=== PATIENT | female | born 1990 | race Caucasian/White ===

== ENCOUNTER → 2021-06-28 18:02 | Outpatient (CLI) | payer OTHER, SELFPAY ==
--- NOTE | 2021-06-28 | DI.MRI.S_ITS ---
PROCEDURE: MR LUMBAR SPINE WO CON INDICATIONS: Low back pain, unspecified TECHNIQUE: Noncontrast sagittal T1 spin echo and T2 fast echo, sagittal STIR, axial T1 and T2 fast spin echo through the lumbar spine. In cases with scoliosis, additional coronal T2 fast spin echo may be performed. COMPARISON: [facility] [place], [place], XR LUMBAR SPINE 2 OR 3 VIEWS, 06/18/2021, 15:31. FINDINGS: Image quality: Excellent. Alignment and Curvature: Mild levo curvature centered at L2. Bone Marrow: Marrow is of normal overall signal. No acute vertebral body compression fractures. Spinal Cord: Conus medullaris terminates at the L1-L2 level. Visualized cord demonstrates normal signal and size. Paraspinous Soft Tissues: No paravertebral masses. T12-L1: No canal stenosis or foraminal stenosis. L1-L2: No canal stenosis or foraminal stenosis. L2-L3: No canal stenosis or foraminal stenosis. L3-L4: Mild facet hypertrophy. No canal stenosis or foraminal stenosis. L4-L5: Posterior annulus tear associated with moderate diffuse disc bulge. Facet hypertrophy. Moderate canal stenosis. Disc material abuts the bilateral L5 nerve roots in the lateral recesses. No significant foraminal stenosis. L5-S1: Annulus tear plus diffuse disc bulge. Facet hypertrophy. Mild canal stenosis. [id number]-[id number] left foraminal stenosis. IMPRESSION: 1. Lower lumbar facet arthropathy. 2. Annulus tears plus disc bulges at L4-L5 and L5-S1. 3. Canal stenosis is moderate at L4-L5 and mild at L5-S1. Dictated by: Micha Caldwell M.D. on 06/28/2021 at 22:42 Approved by: Micha Caldwell M.D. on 06/28/2021 at 22:47
== END ==
PROVIDERS: Referring Provider Orthopaedic Surgery Orthopaedic Surgery of the Spine; Visit Provider Orthopaedic Surgery Orthopaedic Surgery of the Spine
DX: M47.816 Spondylosis without myelopathy or radiculopathy, lumbar region (principal); M47.817 Spondylosis without myelopathy or radiculopathy, lumbosacral region; M51.26 Other intervertebral disc displacement, lumbar region; M51.27 Other intervertebral disc displacement, lumbosacral region; M48.061 Spinal stenosis, lumbar region without neurogenic claudication; M48.07 Spinal stenosis, lumbosacral region
CPT/HCPCS: 72148

== ENCOUNTER 2021-08-10 13:37 | Emergency (ER) | payer OTHER, SELFPAY ==
[2021-08-10 14:05] VITALS: BP 137/89; PULSE 83; RESP 20; TEMP 36.2; O2SAT 100; BMI 28.1
[2021-08-10] MEDS: KETOROLAC 30 MG/ML VIAL 15 MG IV (16:31)
[2021-08-10] MEDS: SODIUM CHLORIDE 0.9% 1,000 ML 1000 ML IV (16:31)
[2021-08-10] MEDS: METOCLOPRAMIDE 10 MG/2 ML INJ IV (16:31)
[2021-08-10] MEDS: DEXAMETHASONE 10 MG/ML VIAL IV (16:31)
--- NOTE | 2021-08-10 18:28 | ED.HA ---
HPI - Headache General Chief Complaint: Headache Stated Complaint: Migraine, loss of vision, faint Time Seen by Provider: 08/10/21 16:08 Source: patient Mode of arrival: Family Vehicle Limitations: no limitations History of Present Illness HPI Narrative: This is a 30-year-old female with history of migraines who comes in with complaint of a right-sided headache that is been present for 3 days it came on slowly in the lower neck and up to the right side of her head. This is somewhat atypical of her 9 greens but she was having nausea, vision changes and some vertigo with her symptoms. Patient states she has not any fevers or chills. She had photophobia, loud noises were also quite troublesome. She tried her Fioricet, sumatriptan as well as Tylenol without any improvement over 3 days and came to the emergency department because her symptoms had worsened. She denies any other infectious type symptoms. She does have a diagnosis of cervical radiculopathy and has intermittent numbness and tingling down her left upper extremity. She is also set up for lower lumbar injection later in the month. She has been seen for both of these. She does take multiple medications including gabapentin, rizatriptan daily. She is feeling significantly better after medications given here in the department. Related Data Allergies Allergy/AdvReac Type Severity Reaction Status Date / Time ceftriaxone [From Rocephin] Allergy Hives Verified 08/10/21 14:10 Review of Systems Review of Systems ROS Unobtainable: All systems reviewed & are unremarkable except as noted in HPI and below Patient History Social History Smoking Status: Never smoker Smoking Status: Never smoker alcohol intake frequency: 0-2 drinks per day Substance Use Type: does not use Exam Narrative Exam Narrative: GEN: well nourished, well appearing female, alert and oriented x 3, patient appears to be in mild distress. HEENT: Atraumatic, pupils are equal round reactive to light, extraocular movements are intact, nares are clear. No meningeal signs. Full range of motion. HEART: Regular rate and rhythm without murmur, clicks, rubs. LUNGS:Lungs clear to auscultation, no wheezes, rales, crackles, chest moves symmetrically ABD:bowel sounds normal, soft, non-tender, no guarding, rebound, rigidity, no masses noted, no hepatosplenomegaly MSCL: Non-tender, no muscle atrophy, muscles strength 5/5 upper and lower extremities, full range of motion, normal gait NEURO:CN 2-12 intact, sensation normal SKIN: No rash noted. Initial Vital Signs Initial Vital Signs: Vital Signs Temperature 97.2 F L 08/10/21 14:05 Pulse Rate 83 08/10/21 14:05 Respiratory Rate 20 08/10/21 14:05 Blood Pressure 137/89 08/10/21 14:05 Pulse Oximetry 100 08/10/21 14:05 Course Orders Ordered: Discontinued Medications Dexamethasone (Dexamethasone 10 Mg/Ml Vial) 10 mg IV NOW ONE Stop: 08/10/21 16:09 Last Admin: 08/10/21 16:31 Dose: 10 mg Documented by: OLEG Sodium Chloride (Normal Saline 0.9%) 1,000 mls @ 1,000 mls/hr IV BOLUS ONE Stop: 08/10/21 17:07 Last Admin: 08/10/21 16:31 Dose: 1,000 mls/hr Documented by: OLEG Ketorolac Tromethamine (Ketorolac 30 Mg/Ml Vial) 15 mg IV NOW ONE Stop: 08/10/21 16:09 Last Admin: 08/10/21 16:31 Dose: 15 mg Documented by: OLEG Metoclopramide HCl (Metoclopramide 10 Mg/2 Ml Inj) 10 mg IV NOW ONE Stop: 08/10/21 16:09 Last Admin: 08/10/21 16:31 Dose: 10 mg Documented by: OLEG Vital Signs Vital signs: Vital Signs - 8 hr 08/10/21 14:05 Temperature 97.2 F L Pulse Rate 83 Respiratory Rate 20 Blood Pressure 137/89 Pulse Oximetry 100 MDM - Headache MDM Narrative Medical decision making narrative: This is a 30-year-old female comes emergency department history of migraines with somewhat atypical location of pain but otherwise similar symptoms who is significantly better after medication. Patient feels comfortable to return home. Discharge Plan Departure Patient Disposition: Home Clinical Impression: Migraine Instructions: DI for Migraine Activity Restrictions/Additional Instructions: Follow-up with your physician for recheck. I would recommend trying to get a good night's sleep and drinking plenty of water. Please return for fevers, new or worsening headaches, new vision changes, new numbness, weakness, difficulty with movement, speech changes, persistent vomiting or other new or concerning symptoms. Referrals: Kristan Mandujano ARNP [Primary Care Provider] -
[2021-08-10 18:41] VITALS: BP 129/73; PULSE 79; RESP 16; O2SAT 100
== END 2021-08-10 18:44 | disposition home or self-care (01) ==
PROVIDERS: Emergency Provider Emergency Medicine; PCP Nurse Practitioner Family
DX: G43.909 Migraine, unspecified, not intractable, without status migrainosus (principal)
CPT/HCPCS: 96361; 96374; 96375; 99283; 99284; J1100; J1885; J2765

== ENCOUNTER → 2021-11-11 13:01 | Outpatient (CLI) | payer OTHER, SELFPAY ==
--- NOTE | 2021-11-11 | DI.MRI.S_ITS ---
PROCEDURE: MR HEAD/BRAIN WO/W CON INDICATIONS: Chronic migraine without aura, intractable TECHNIQUE: Noncontrast sagittal T1 spin echo, axial T2 fast spin echo, axial FLAIR, axial gradient echo, axial diffusion and ADC through the brain. Axial/sagittal/coronal 3-D CISS, thin-slice axial T1 spin echo with fat saturation through the skull base. After the administration of contrast, axial and coronal thin-slice T1 spin echo with fat saturation through the skull base, axial T1 spin echo with fat saturation through the brain. COMPARISON: None. FINDINGS: Cerebrum, Cerebellum and Brainstem: The diffusion sequence is normal without evidence of acute infarct. No intracranial hemorrhage, mass lesion or midline shift. There is a normal cerebral and cerebellar volume present. White matter is unremarkable without evidence of edema. Basal cisterns and foramen magnum contain appropriate anatomy and vascular flow voids. No evidence of dural or leptomeningeal thickening. Small retro cerebellar cyst measures 2.0 x 1.5 cm Ventricles: Appropriate in size and position. No hydrocephalus. Skull Base: The bony sella, pituitary gland and infundibulum are unremarkable. Clivus and craniovertebral relationships are appropriate. Visualized portions of the seventh and eighth cranial nerve complexes and internal auditory canals are within normal limits. Scalp and Calvarium: The scalp is unremarkable. Underlying calvarium has an appropriate marrow signal. Paranasal Sinuses: Visualized sinuses are clear. Mastoids: Unremarkable as visualized. No mastoid effusion present. Orbits: The orbits, globes and ocular muscles are unremarkable. IMPRESSION: Unremarkable MRI of the brain Approved by: Hunter Sarmiento M.D. on 11/11/2021 at 16:48
== END ==
PROVIDERS: PCP Nurse Practitioner Family; Referring Provider Psychiatry & Neurology Neurology; Visit Provider Psychiatry & Neurology Neurology
DX: G43.719 Chronic migraine without aura, intractable, without status migrainosus (principal)
CPT/HCPCS: 70553; A9579

== ENCOUNTER 2025-04-13 16:29 | Emergency (ER) | payer OTHER, SELFPAY ==
[2025-04-13 16:56] VITALS: BP 134/107; PULSE 99; RESP 16; TEMP 36.4; O2SAT 100; BMI 28.0
--- NOTE | 2025-04-13 17:07 | DI.RAD.S_ITS ---
PROCEDURE: XR CHEST 1V INDICATIONS: Chest Pain TECHNIQUE: One view of the chest was acquired. COMPARISON: None. FINDINGS: Surgical changes and devices: None. Lungs and pleura: Lungs are clear. No pleural effusions or pneumothorax. Mediastinum: Mediastinal contours appear normal. Heart size is normal. Bones and chest wall: No suspicious bony lesions. Overlying soft tissues appear unremarkable. IMPRESSION: No acute cardiopulmonary abnormality is seen. Dictated by: Micha Caldwell M.D. on 04/13/2025 at 17:52 Approved by: Micha Caldwell M.D. on 04/13/2025 at 17:53
--- NOTE | 2025-04-13 17:07 | EKG_ITS ---
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
--- NOTE | 2025-04-13 17:49 | ED.CHESTPAIN ---
HPI - Chest Pain <MIRELA Cruz Last Filed: 04/13/25 20:20> General Chief Complaint: Chest Pain Stated Complaint: chest pain, headache Time Seen by Provider: 04/13/25 17:43 Source: patient Mode of arrival: Ambulatory History of Present Illness HPI narrative: Ms. Ferrer is a pleasant 34-year-old female with a past medical history of migraine headache, HLD who presents to the emergency department for left-sided chest pain, headache x 6-8 weeks, pain with deep breath today. Patient states that she was previously evaluated for these symptoms at an outside ER and had negative workup at that time however her symptoms have been getting worse and more frequent and today she also started to have some pain with a deep breath which is what prompted her ER arrival. Patient describes focal intermittent pain on the anterior left lowest rib that lasts for about an hour when it comes and then entirely resolves. Today this pain got worse and was more prominent with a deep breath which is what caused her to return to the ER. She also has a tight sensation on her left upper chest wall and a muscle spasm in the left posterior neck that is causing headache. Patient denies abdominal pain, nausea, vomiting, diarrhea, constipation, dysuria but she does report some urinary frequency. Denies fevers, chills, cough, URI type symptoms. Denies history of VTE, she does take oral contraceptive pills. Smoking history consists of 1 year vaping. Related Data Previous Rx's ?Medication ?Instructions ?Recorded pantoprazole 40 mg tablet,delayed 40 mg PO DAILY 4 weeks #30 tabs 04/13/25 release Allergies Allergy/AdvReac Type Severity Reaction Status Date / Time ceftriaxone (From Rocephin) Allergy Hives Verified 08/10/21 14:10 Review of Systems <Martine Munguia PA-C - Last Filed: 04/13/25 20:20> Review of Systems ROS Unobtainable: All systems reviewed & are unremarkable except as noted in HPI and below Patient History <Martine Munguia PA-C - Last Filed: 04/13/25 20:20> Social History Smoking Status: Former smoker Smoking Status: Former smoker tobacco type: vaping alcohol intake frequency: 0-2 drinks per day Exam <Martine Munguia PA-C - Last Filed: 04/13/25 20:20> Narrative Exam Narrative: GENERAL: 34 year old patient appears stated age. Well-developed patient, in no acute distress. HEAD: Atraumatic. Normocephalic. EYES: Pupils equal, round, reactive. No scleral icterus. No injection or drainage. NECK: Trachea midline. Cervical ROM intact. No midline spinal tenderness or meningeal signs. CARDIOVASCULAR: Regular rate and rhythm. Patient has subjective tenderness to palpation of a focal area on the anterior lower ribcage. No bruising or deformities. RESPIRATORY: ?Nonlabored respirations. ?Speaking in clear, full sentences. ?Clear to auscultation. Breath sounds equal bilaterally. No wheezes, rales, or rhonchi. ? GASTROINTESTINAL: Abdomen soft, non-tender, nondistended. BS present. EXTREMITIES: No LE edema. BACK: No CVA tenderness bilaterally. NEURO: AOx3. ?Clear speech. ?Moves all 4 extremities appropriately. SKIN: No rash or erythema of visible areas Initial Vital Signs Initial Vital Signs: Vital Signs Temperature 97.6 F 04/13/25 16:56 Pulse Rate 99 H 04/13/25 16:56 Respiratory Rate 16 04/13/25 16:56 Blood Pressure 134/107 H 04/13/25 16:56 Pulse Oximetry 100 04/13/25 16:56 Oxygen Delivery Method Room Air 04/13/25 16:56 <Danika Schuster DO - Last Filed: 04/14/25 03:49> Initial Vital Signs Initial Vital Signs: Vital Signs Temperature 97.6 F 04/13/25 16:56 Pulse Rate 99 H 04/13/25 16:56 Respiratory Rate 16 04/13/25 16:56 Blood Pressure 134/107 H 04/13/25 16:56 Pulse Oximetry 100 04/13/25 16:56 Oxygen Delivery Method Room Air 04/13/25 16:56 Scores <Martine Munguia PA-C - Last Filed: 04/13/25 20:20> HEART Score Heart Score history: Slightly Suspicious Heart Score EKG: Normal Heart Score Age: < 45 years old Heart Score risk factors: 1-2 risk factors Heart Score troponin: < or = to normal limit Heart Score Total: 1 PERC Score Age greater than or equal to 50 years: No Heart rate greater than or equal to 100 bpm: No Room Air O2 Sat less than 95%: No Unilateral leg swelling: No Recent trauma or surgery: No Hemoptysis: No Prior PE or DVT: No Hormone Use: Yes Total PERC Score: 1 <Danika Schuster DO - Last Filed: 04/14/25 03:49> HEART Score Heart Score Total: 1 PERC Score Total PERC Score: 1 Course <Martine Munguia PA-C - Last Filed: 04/13/25 20:20> Orders Ordered: ED Orders 04/13/25 19:14 Complete Blood Count AUTO DIFF Stat Comprehensive Metabolic Panel Stat Lipase Stat Magnesium Stat NT-proBNP (BNP-Adult 18+) Stat Troponin & CK Cardiac Panel Stat Discontinued Medications Aspirin (Aspirin 81 Mg Chew Tab) 324 mg PO NOW ONE Stop: 04/13/25 17:08 Last Admin: 04/13/25 18:08 Dose: Not Given Documented By: ARLEY Sodium Chloride (Normal Saline 0.9%) 1,000 mls @ 1,000 mls/hr IV BOLUS ONE Stop: 04/13/25 19:04 Last Infusion: 04/13/25 19:49 Dose: Infused Documented By: Admin: 04/13/25 18:22 Dose: 1,000 mls/hr Documented By: ARLEY Ketorolac Tromethamine (Ketorolac 30 Mg/Ml Vial) 15 mg IV NOW ONE Stop: 04/13/25 18:06 Last Admin: 04/13/25 18:22 Dose: 15 mg Documented By: ARLEY Methocarbamol (Methocarbamol 500 Mg Tablet) 1,000 mg PO NOW ONE Stop: 04/13/25 18:06 Last Admin: 04/13/25 18:31 Dose: 1,000 mg Documented By: ARLEY Vital Signs Vital signs: Vital Signs - 8 hr 04/13/25 16:56 Temperature 97.6 F Pulse Rate 99 H Respiratory Rate 16 Blood Pressure 134/107 H Pulse Oximetry 100 Oxygen Delivery Method Room Air <Danika Schuster DO - Last Filed: 04/14/25 03:49> Orders Ordered: ED Orders 04/13/25 19:14 Complete Blood Count AUTO DIFF Stat Comprehensive Metabolic Panel Stat Lipase Stat Magnesium Stat NT-proBNP (BNP-Adult 18+) Stat Troponin & CK Cardiac Panel Stat Discontinued Medications Aspirin (Aspirin 81 Mg Chew Tab) 324 mg PO NOW ONE Stop: 04/13/25 17:08 Last Admin: 04/13/25 18:08 Dose: Not Given Documented By: ARLEY Sodium Chloride (Normal Saline 0.9%) 1,000 mls @ 1,000 mls/hr IV BOLUS ONE Stop: 04/13/25 19:04 Last Infusion: 04/13/25 19:49 Dose: Infused Documented By: Admin: 04/13/25 18:22 Dose: 1,000 mls/hr Documented By: ARLEY Ketorolac Tromethamine (Ketorolac 30 Mg/Ml Vial) 15 mg IV NOW ONE Stop: 04/13/25 18:06 Last Admin: 04/13/25 18:22 Dose: 15 mg Documented By: RB Methocarbamol (Methocarbamol 500 Mg Tablet) 1,000 mg PO NOW ONE Stop: 04/13/25 18:06 Last Admin: 04/13/25 18:31 Dose: 1,000 mg Documented By: RB Vital Signs Vital signs: Vital Signs - 8 hr 04/13/25 16:56 Temperature 97.6 F Pulse Rate 99 H Respiratory Rate 16 Blood Pressure 134/107 H Pulse Oximetry 100 Oxygen Delivery Method Room Air MDM - Chest Pain <Martine Munguia PA-C - Last Filed: 04/13/25 20:20> Medical Records Data Attestation: I reviewed the patient's medical records. Medical records narrative: ER visit 08/10/21 Lab Data 04/13/25 19:14 04/13/25 19:14 Labs: Lab Results 04/13/25 Range/Units 19:14 WBC 11.9 H (4.5-11.0) X10^3/uL RBC 4.82 (4.0-5.2) X10^6/uL Hgb 14.9 (12.0-16.0) g/dL Hct 43.1 (36-46) % MCV 89.3 (80-100) fL MCH 30.9 (26-34) PG MCHC 34.6 (30-36) % RDW 13.2 (11.6-14.8) % Plt Count 323 (150-400) X10^3/uL Neut % (Auto) 64.9 (50-75) % Lymph % (Auto) 29.4 (25-40) % [place] % (Auto) 4.6 (3-14) % Eos % (Auto) 0.7 L (2-4) % Baso % (Auto) 0.4 (0-2) % Neut # (Auto) 7700 H (5123-2675) /uL Lymph # (Auto) 3500 (4096-3523) /uL [place] # (Auto) 500 (0-900) /uL Eos # (Auto) 100 (0-450) /uL Baso # (Auto) 0 (0-100) /uL Sodium 135 L (137-145) mmol/L Potassium 4.6 (3.4-5.1) mmol/L Chloride 109 H (98-107) mmol/L Carbon Dioxide 18 L (22-32) mmol/L BUN 16 (7-17) mg/dL Creatinine 0.82 (0.52-1.04) mg/dL Estimated GFR > 60 (>60) mL/min BUN/Creatinine Ratio 19.5 (6-22) Glucose 87 (70-99) mg/dL Calcium 8.8 (8.4-10.2) mg/dL Magnesium 1.9 (1.6-2.3) mg/dL Total Bilirubin 0.9 (0.2-1.3) mg/dL AST 27 (14-36) IU/L ALT 17 (<35) IU/L Alkaline Phosphatase 59 (38-126) U/L Total Creatine Kinase 98 (30-135) U/L Troponin I < 0.012 (0.01-0.034) ng/mL NT-Pro-B Natriuret Pep < 20 (<125) pg/mL Total Protein 7.0 (6.3-8.2) g/dL Albumin 4.3 (3.5-5.0) g/dL Globulin 2.7 (1.7-4.1) g/dL Albumin/Globulin Ratio 1.6 (1.0-2.8) Lipase 82 (23-300) U/L Point of Care Testing Test Results Negative Urine Dip Bedside Urine Glucose Negative Bedside Urine Bilirubin - Negative Bedside Urine Ketone +/- 5 Urine Specific [place] 0.005 Bedside Urine Occult Blood - Negative Bedside Urine pH 6.0 Bedside Urine Protein - Negative Bedside Urine Urobilinogen 0.2 Bedside Urine Nitrite - Negative Bedside Urine Leukocytes - Negative Esterase Imaging Data Chest x-ray: Radiologist's Impression: PROCEDURE: XR CHEST 1V INDICATIONS: Chest Pain TECHNIQUE: One view of the chest was acquired. COMPARISON: None. FINDINGS: Surgical changes and devices: None. Lungs and pleura: Lungs are clear. No pleural effusions or pneumothorax. Mediastinum: Mediastinal contours appear normal. Heart size is normal. Bones and chest wall: No suspicious bony lesions. Overlying soft tissues appear unremarkable. IMPRESSION: No acute cardiopulmonary abnormality is seen. Dictated by: Micha Caldwell M.D. on 04/13/2025 at 17:52 Approved by: Micha Caldwell M.D. on 04/13/2025 at 17:53 Chest CTA: Radiologist's Impression: PROCEDURE: CT ANGIO CHEST PE PROTOCOL INDICATIONS: concern PE; Left front chest pain w SOB TECHNIQUE: After the administration of intravenous contrast, 2 mm thick sections acquired from the pulmonary apices to the posterior costophrenic angles. 3-dimensional maximum intensity projection (MIP) coronal and sagittal reformats were then acquired through the thorax. For radiation dose reduction, the following was used: automated exposure control, adjustment of mA and/or kV according to patient size. COMPARISON: [facility], , XR CHEST 1V, 04/13/2025, 17:07. FINDINGS: Image quality: Diagnostic Lungs and pleura: No pneumothorax. No hemothorax. No airspace consolidation or pleural effusions. Mediastinum, heart, and esophagus: No acute pulmonary embolism. Small hiatal hernia. Mild wall thickening at the GE junction. Heart size is at the upper limit of normal. No enlarged lymph nodes by size criteria. Chest wall and thyroid: Breast implants. No axillary lymph nodes enlarged by size criteria. Upper abdomen: Unremarkable on this arterial phase study Bones: There are degenerative changes. No aggressive appearing osseous abnormality. Rightward thoracic spinal curvature. IMPRESSION: No acute pulmonary embolism. No airspace consolidation or pleural effusion. Small hiatal hernia and mild wall thickening at the GE junction, possibly esophagitis. Consider endoscopy if clinically appropriate. Other findings above. Dictated by: Jaylon Ordonez M.D. on 04/13/2025 at 19:50 Approved by: Jaylon Ordonez M.D. on 04/13/2025 at 19:54 ECG Data Interpretation: ECG reveals normal sinus rhythm with a rate of 92 beats per minute, QTC 497, no axis deviation, nonspecific T-wave abnormality, no ST segment elevation or depression. MDM Narrative Medical decision making narrative: 34-year-old female with a past medical history of migraine headache, HLD who presents to the emergency department for left-sided chest pain, headache x 6-8 weeks, pain with deep breath today. Differential diagnosis includes but is not limited to costochondritis or musculoskeletal pain, muscle spasm, PE, pneumonia, rib fracture, slipping rib syndrome, precordial catch syndrome, pancreatitis, etc. On exam patient is in no acute distress, nontoxic appearing, vital signs appropriate, she was mildly tachycardic and hypertensive in triage but this is improved. Patient has been dealing with headache and chest pain for almost 2 months now however today she started having pain with a deep breath which is a new symptom. She is on oral contraceptive pill so she is not PERC negative, we will proceed with CT angiogram to rule PE. Will sheet chest wall pain in addition to muscle spasm with methocarbamol, fluids, Toradol at this time. Point of care urinalysis and preg negative. Multiple attempts were made by nursing staff and lab to get blood from patient, eventually purple and green top labs were able to get obtained but not blue top therefore we do not have coags at this time. Heart score 1. Labs reveal negative troponin, negative BNP, normal lipase 82, normal LFTs, normal renal function with BUN 16 creatinine 0.82. Sodium slightly decreased 135, potassium normal 4.6, normal albumin corrected anion gap 7.3. Chest CTA reveals no acute PE, no airspace consolidation or pleural effusion. Small hiatal hernia mouth while thickening of the GE junction, possibly esophagitis, consider endoscopy. Printed discussed imaging results with the patient. Recommended initiating PPI, prescribed Protonix, in addition to following up with the PCP for endoscopy with gen surg or GI. Discussed rest, hydration, Tylenol, ppi, avoidance of exacerbating foods, strict ED return precautions. Patient verbalized understanding of all information is agreeable with the plan, all vital signs within normal limits, ambulatory and stable for discharge home. <Daniak Schuster, - Last Filed: 04/14/25 03:49> Lab Data Labs: Lab Results 04/13/25 Range/Units 19:14 WBC 11.9 H (4.5-11.0) X10^3/uL RBC 4.82 (4.0-5.2) X10^6/uL Hgb 14.9 (12.0-16.0) g/dL Hct 43.1 (36-46) % MCV 89.3 (80-100) fL MCH 30.9 (26-34) PG MCHC 34.6 (30-36) % RDW 13.2 (11.6-14.8) % Plt Count 323 (150-400) X10^3/uL Neut % (Auto) 64.9 (50-75) % Lymph % (Auto) 29.4 (25-40) % [place] % (Auto) 4.6 (3-14) % Eos % (Auto) 0.7 L (2-4) % Baso % (Auto) 0.4 (0-2) % Neut # (Auto) 7700 H (7682-7119) /uL Lymph # (Auto) 3500 (5765-5204) /uL [place] # (Auto) 500 (0-900) /uL Eos # (Auto) 100 (0-450) /uL Baso # (Auto) 0 (0-100) /uL Sodium 135 L (137-145) mmol/L Potassium 4.6 (3.4-5.1) mmol/L Chloride 109 H (98-107) mmol/L Carbon Dioxide 18 L (22-32) mmol/L BUN 16 (7-17) mg/dL Creatinine 0.82 (0.52-1.04) mg/dL Estimated GFR > 60 (>60) mL/min BUN/Creatinine Ratio 19.5 (6-22) Glucose 87 (70-99) mg/dL Calcium 8.8 (8.4-10.2) mg/dL Magnesium 1.9 (1.6-2.3) mg/dL Total Bilirubin 0.9 (0.2-1.3) mg/dL AST 27 (14-36) IU/L ALT 17 (<35) IU/L Alkaline Phosphatase 59 (38-126) U/L Total Creatine Kinase 98 (30-135) U/L Troponin I < 0.012 (0.01-0.034) ng/mL NT-Pro-B Natriuret Pep < 20 (<125) pg/mL Total Protein 7.0 (6.3-8.2) g/dL Albumin 4.3 (3.5-5.0) g/dL Globulin 2.7 (1.7-4.1) g/dL Albumin/Globulin Ratio 1.6 (1.0-2.8) Lipase 82 (23-300) U/L Point of Care Testing Test Results Negative Urine Dip Bedside Urine Glucose Negative Bedside Urine Bilirubin - Negative Bedside Urine Ketone +/- 5 Urine Specific [place] 0.005 Bedside Urine Occult Blood - Negative Bedside Urine pH 6.0 Bedside Urine Protein - Negative Bedside Urine Urobilinogen 0.2 Bedside Urine Nitrite - Negative Bedside Urine Leukocytes - Negative Esterase Discharge Plan Departure Patient Disposition: Home Clinical Impression: Left-sided chest wall pain, Hernia, hiatal, Esophagitis Activity Restrictions/Additional Instructions: Dear Ms. Ferrer, Thank you for coming to the emergency department. Today you were evaluated for left-sided chest pain, neck pain. Your workup today was overall reassuring from a cardiac standpoint, there was no heart or lung abnormalities found on your imaging or lab work, no blood clot in the lungs. Your CT scan did however reveal a hiatal hernia, esophagitis, and thoracic scoliosis. All of the things can be contributing to your pain. I have prescribed you a daily proton pump inhibitor to initiate, however I do recommend you follow up with the primary care doctor as soon as possible with plans to have an endoscopy in the future. Please rest, hydrate, use Tylenol as needed for pain in addition to muscle relaxers. Please return to the emergency department if you develop any new or worsening symptoms, severe pain, difficulty breathing or any other concerns. Please follow up with your primary care doctor within the next 2-3 days for ER follow-up. (If you do not have a PCP you can call [phone]. ?to schedule an appointment with an [facility] Primary Care Provider) IF YOU DEVELOP ANY NEW OR WORSENING SYMPTOMS, RETURN TO THE ER! Please read the attached instructions, they highlight more specific treatments and interventions for you at home. Thank you for letting me participate in your care, Martine Munguia PA-C Prescriptions: New pantoprazole 40 mg tablet,delayed release (DR/EC) 40 mg PO DAILY 28 Days Qty: 30 0RF Referrals: Kristan Mandujano ARNP [Primary Care Provider, Family Practice] Stand Alone Forms: Patient Portal/API
--- NOTE | 2025-04-13 18:05 | DI.CT.S_ITS ---
PROCEDURE: CT ANGIO CHEST PE PROTOCOL INDICATIONS: concern PE; Left front chest pain w SOB TECHNIQUE: After the administration of intravenous contrast, 2 mm thick sections acquired from the pulmonary apices to the posterior costophrenic angles. 3-dimensional maximum intensity projection (MIP) coronal and sagittal reformats were then acquired through the thorax. For radiation dose reduction, the following was used: automated exposure control, adjustment of mA and/or kV according to patient size. COMPARISON: [facility], CR, XR CHEST 1V, 04/13/2025, 17:07. FINDINGS: Image quality: Diagnostic Lungs and pleura: No pneumothorax. No hemothorax. No airspace consolidation or pleural effusions. Mediastinum, heart, and esophagus: No acute pulmonary embolism. Small hiatal hernia. Mild wall thickening at the GE junction. Heart size is at the upper limit of normal. No enlarged lymph nodes by size criteria. Chest wall and thyroid: Breast implants. No axillary lymph nodes enlarged by size criteria. Upper abdomen: Unremarkable on this arterial phase study Bones: There are degenerative changes. No aggressive appearing osseous abnormality. Rightward thoracic spinal curvature. IMPRESSION: No acute pulmonary embolism. No airspace consolidation or pleural effusion. Small hiatal hernia and mild wall thickening at the GE junction, possibly esophagitis. Consider endoscopy if clinically appropriate. Other findings above. Dictated by: Jaylon Ordonez M.D. on 04/13/2025 at 19:50 Approved by: Jaylon Ordonez M.D. on 04/13/2025 at 19:54
[2025-04-13] MEDS: SODIUM CHLORIDE 0.9% 1,000 ML 1000 ML IV (18:22)
[2025-04-13] MEDS: KETOROLAC 30 MG/ML VIAL 15 MG IV (18:22)
[2025-04-13 19:31] VITALS: BP 138/83; PULSE 86; RESP 18; TEMP 36.4; O2SAT 100
[2025-04-13 19:33] LABS: Add Manual Diff / Slide Review NO; Hematocrit 43.1 % (36-46); Hemoglobin 14.9 g/dL (12.0-16.0); Lymphocytes Absolute Auto 3500 /uL (1100-4500); Mean Corpuscular HGB Conc 34.6 % (30-36); Mean Corpuscular Hemoglobin 30.9 PG (26-34); Mean Corpuscular Volume 89.3 fL (80-100); Platelet Count 323 X10^3/uL (150-400)
[2025-04-13 19:38] LABS: Alanine Aminotransferase 17 IU/L (<35); Albumin 4.3 g/dL (3.5-5.0); Albumin Globulin Ratio 1.6 (1.0-2.8); Alkaline Phosphatase 59 U/L (38-126); Blood Urea Nitrogen 16 mg/dL (7-17); Calcium 8.8 mg/dL (8.4-10.2); Carbon Dioxide 18 mmol/L (22-32); Chloride 109 mmol/L (98-107); Creatine Kinase 98 U/L (30-135); Estimated Glomerular Filt Rate > 60 mL/min (>60); Globulin 2.7 g/dL (1.7-4.1); Glucose 87 mg/dL (70-99); Lipase 82 U/L (23-300); Magnesium 1.9 mg/dL (1.6-2.3); Potassium 4.6 mmol/L (3.4-5.1); Sodium 135 mmol/L (137-145); Total Protein 7.0 g/dL (6.3-8.2)
[2025-04-13 19:50] LABS: NT-proBNP (BNP-Adult 18+) < 20 pg/mL (<125); Troponin I < 0.012 ng/mL (0.01-0.034)
[2025-04-13 19:51] LABS: HEMOLYSIS 57 (0-50)
== END 2025-04-13 20:20 | disposition home or self-care (01) ==
PROVIDERS: Emergency Provider Physician Assistant; PCP Nurse Practitioner Family
DX: R07.89 Other chest pain (principal); K44.9 Diaphragmatic hernia without obstruction or gangrene; K20.90 Esophagitis, unspecified without bleeding; R51.9 Headache, unspecified; Z87.891 Personal history of nicotine dependence
CPT/HCPCS: 71045; 71275; 80053; 81003; 81025; 82550; 83690; 83735; 83880; 84484; 85025; 93005; 96361; 96374; 99284; J1885; Q9967

== ENCOUNTER 2025-07-25 10:46 | Emergency (ER) | payer OTHER, SELFPAY ==
[2025-07-25 11:11] VITALS: BP 151/91; PULSE 98; RESP 16; TEMP 36.4; O2SAT 100; BMI 26.9
[2025-07-25 12:49] VITALS: BP 153/90; PULSE 86; RESP 18; O2SAT 99
--- NOTE | 2025-07-25 13:08 | ED_ITS ---
HPI - Neck Pain/Injury General Chief Complaint: Neck Pain/Injury Stated Complaint: Neck pain , pain in left ear , feeling off 2 weeks Time Seen by Provider: 07/25/25 11:26 Mode of arrival: Ambulatory History of Present Illness HPI Narrative: 34-year-old female with past medical history migraines presents to the ED with a headache, left-sided facial numbness, tingling. Patient also complains of left- sided neck pain. Endorses photophobia. No nausea, vomiting, fever, chills, chest pain, shortness of breath, lightheadedness, dizziness, syncope. Headache is similar to prior headaches. The neck pain is new. No trauma. Related Data Previous Rx's ?Medication ?Instructions ?Recorded cyclobenzaprine 10 mg tablet 10 mg PO TID PRN muscle s pasm 5 07/25/25 days #15 tabs Allergies Allergy/AdvReac Type Severity Reaction Status Date / Time ceftriaxone (From Rocephin) Allergy Hives Verified 08/10/21 14:10 Review of Systems Constitutional Constitutional: Denies chills, Denies fatigue, Denies fever(s), Denies frequent falls, Reports headache(s), Denies lethargy and Denies weakness Eyes Eyes: Denies change in vision, Denies eye discharge, Denies irritation and Denies loss of vision ENT Ears, Nose, Mouth, and Throat: Denies change in voice, Denies dizziness, Reports headache(s), Reports neck pain, Denies sore throat and Denies throat swelling Cardiovascular Cardiovascular: Denies chest pain, Denies irregular heart rhythm, Denies lightheadedness, Denies palpitations, Denies dyspnea, Denies dyspnea on exertion and Denies orthopnea Respiratory Respiratory: Denies cough, Denies dyspnea, Denies dyspnea on exertion and Denies wheezing Gastrointestinal Gastrointestinal: Denies abdominal pain, Denies change in bowel habits, Denies diarrhea, Denies nausea and Denies vomiting Musculoskeletal Musculoskeletal: Reports neck pain and Denies numbness Integumentary/Breasts Skin/Breast: Denies pruritus, Denies erythema, Denies rash and Denies wounds Neurologic Neurologic: Denies behavioral changes, Denies confusion, Denies dizziness, Denies frequent falls, Reports headache(s), Denies loss of vision, Denies numbness and Denies weakness Comments: Left-sided facial numbness, tingling Psychiatric Psychiatric: Denies anxiety, Denies behavioral changes, Denies confusion, Denies depression, Denies homicidal ideation and Denies suicidal ideation Endocrine Endocrine: Denies fatigue, Denies flushing and Denies palpitations Hematologic/Lymphatic Hematologic/Lymphatic: Denies easy bruising Allergic/Immunologic Allergic/Immunologic: Denies urticaria, Denies throat swelling and Denies wheezing Patient History tobacco type: vaping alcohol intake frequency: 0-2 drinks per day Exam Narrative Exam Narrative: Const General:?cooperative, healthy appearing and comfortable [facility] Head:?normal to inspection Ears:?hearing grossly normal bilaterally Nose:?external nose normal Face and sinus:?normal facial exam and sinuses nontender Mouth:?oral mucosae normal Throat:?posterior oropharynx normal Eyes General:?appearance normal, both eyes and all related structures Neck Neck:?normal visual inspection and no lymphadenopathy noted Resp Effort & Inspection:?normal respiratory effort Auscultation:?clear to auscultation bilaterally Cardio Rate:?regular rate Rhythm:?regular rhythm Neuro General:?patient alert, patient awake and patient oriented x3; PERRLA; CN 2 through 12 intact bilaterally; gait normal; neurologically intact; changes to sensation on left side of face Initial Vital Signs Initial Vital Signs: Vital Signs Temperature 97.5 F L 07/25/25 11:11 Pulse Rate 98 H 07/25/25 11:11 Respiratory Rate 16 07/25/25 11:11 Blood Pressure 151/91 H 07/25/25 11:11 Pulse Oximetry 100 07/25/25 11:11 Oxygen Delivery Method Room Air 07/25/25 11:11 Course Orders Ordered: Discontinued Medications Dexamethasone (Dexamethasone 10 Mg/Ml Vial) 10 mg IV NOW ONE Stop: 07/25/25 13:09 Last Admin: 07/25/25 13:19 Dose: 10 mg Diphenhydramine HCl (Diphenhydramine 50 Mg/Ml Vial) 25 mg IV NOW ONE Stop: 07/25/25 13:09 Last Admin: 07/25/25 13:19 Dose: 25 mg Acetaminophen (Ofirmev) 1,000 mg in 100 mls @ 400 mls/hr IV NOW ONE Stop: 07/25/25 13:22 Last Infusion: 07/25/25 13:33 Dose: Infused Sodium Chloride (Normal Saline 0.9%) 1,000 mls @ 1,000 mls/hr IV BOLUS ONE Stop: 07/25/25 14:35 Last Infusion: 07/25/25 15:11 Dose: Infused Ketorolac Tromethamine (Ketorolac 30 Mg/Ml Vial) 15 mg IV NOW ONE Stop: 07/25/25 13:09 Last Admin: 07/25/25 13:18 Dose: 15 mg Metoclopramide HCl (Metoclopramide 10 Mg/2 Ml Inj) 10 mg IV NOW ONE Stop: 07/25/25 13:09 Last Admin: 07/25/25 13:19 Dose: 10 mg Vital Signs Vital signs: Vital Signs - 8 hr 07/25/25 11:11 07/25/25 12:49 07/25/25 15:39 Temperature 97.5 F L Pulse Rate 98 H 86 88 Respiratory Rate 16 18 18 Blood Pressure 151/91 H 153/90 H 118/68 Pulse Oximetry 100 99 99 Oxygen Delivery Method Room Air Room Air Room Air MDM - Neck Pain/Injury MDM Narrative Medical decision making narrative: 34-year-old female with past medical history migraines presents to the ED with a headache, left-sided facial numbness, tingling. On exam, symptoms are most consistent with a migraine, neck pain of musculoskeletal etiology. Patient is neurologically intact. Patient was given a migraine cocktail containing Toradol, Tylenol, Reglan, Benadryl, Decadron along with 1 L of normal saline. Patient's symptoms improved considerably after the treatment. Recommend patient take Flexeril and ibuprofen for the neck pain. Recommend follow-up with PCP as soon as possible. ED return precautions discussed with patient. Patient verbalized understanding. Records reviewed: Yes Discharge Plan Departure Patient Disposition: Home Clinical Impression: Strain of neck muscle Qualifiers: Encounter type: initial encounter Qualified Code(s): S16.1XXA - Strain of muscle, fascia and tendon at neck level, initial encounter Migraine Qualifiers: Migraine type: unspecified Status migrainosus presence: without status migrainosus Intractability: not intractable Qualified Code(s): G43.909 - Migraine, unspecified, not intractable, without status migrainosus Instructions: Migraine -- Adult, DI for Neck Pain Activity Restrictions/Additional Instructions: You were evaluated in the emergency department today for neck pain and a headache. Headache an associated symptoms resolved well with the medications. Your neck pain is likely due to a strained neck muscle. You are being prescribed a muscle relaxant for it. You may also continue taking Tylenol, ibuprofen along with a muscle relaxant. Please follow-up with your PCP as soon as possible. Return to the ED if you have worsening symptoms, numbness, tingling, weakness. Prescriptions: New cyclobenzaprine 10 mg tablet 10 mg PO TID PRN (Reason: muscle spasm) 5 Days Qty: 15 0RF Referrals: Jez Ruiz PA-C [Primary Care Provider, Medical] Stand Alone Forms: Patient Portal/API
[2025-07-25] MEDS: KETOROLAC 30 MG/ML VIAL 15 MG IV (13:18)
[2025-07-25] MEDS: ACETAMINOPHEN IV 1,000 MG/100 ML VIAL 400 MG IV (13:18)
[2025-07-25] MEDS: METOCLOPRAMIDE 10 MG/2 ML INJ IV (13:19)
[2025-07-25] MEDS: diphenhydrAMINE 50 MG/ML VIAL 25 MG IV (13:19)
[2025-07-25] MEDS: SODIUM CHLORIDE 0.9% 1,000 ML 1000 ML IV (13:54)
[2025-07-25 15:39] VITALS: BP 118/68; PULSE 88; RESP 18; O2SAT 99
== END 2025-07-25 15:47 | disposition home or self-care (01) ==
PROVIDERS: Emergency Provider Student in an Organized Health Care Education/Training Program; PCP Physician Assistant
DX: S16.1XXA Strain of muscle, fascia and tendon at neck level, initial encounter (principal); H92.02 Otalgia, left ear; R51.9 Headache, unspecified; R20.0 Anesthesia of skin; R20.2 Paresthesia of skin; X58.XXXA Exposure to other specified factors, initial encounter
CPT/HCPCS: 96361; 96374; 96375; 99283; 99284; J0131; J1100; J1200; J1885; J2765; J7030